=== PATIENT | female | born 1995 | race Caucasian/White ===

== ENCOUNTER 2017-11-13 23:34 | Emergency (ER) | payer SELFPAY | END 2017-11-14 01:08 | disposition left against medical advice (07) | LOC: ER 23:36 | DX: G89.18 Other acute postprocedural pain (principal); K08.89 Other specified disorders of teeth and supporting structures; Z98.890 Other specified postprocedural states ==

== ENCOUNTER → 2020-09-04 | Outpatient (CLI) | payer OTHER ==
--- NOTE | 2020-09-04 13:25 | Diagnostic Imaging Report ---
INDICATION: Evaluate placenta and anatomy as well as growth. TECHNIQUE: Multiple real-time grayscale images were obtained over the gravid uterus. COMPARISON: None. FINDINGS: There is a single live fetus in a cephalic presentation. heart rate was recorded at 142 BPM. Placenta is posterior. Amniotic fluid volume appears appropriate. Cervical length is 3.8 cm. kidneys, bladder, and stomach are visualized. Bladder does show some mild distention. The brain is unremarkable. There is a four-chamber heart. There is a three-vessel cord with normal insertion. spine is unremarkable. Previously noted placental cyst is not appreciated on today's study. Biometrical measurements are as follows: Biparietal 7.95 cm, age 32 weeks 0 days. Head circumference 29.02 cm, age 32 weeks 0 days. Abdominal circumference 23.59 cm, age 28 weeks 0 days. Femur length 5.83 cm, age 30 weeks 4 days. Sonographic estimate age: 30 weeks 5 days. Sonographic estimated date of delivery: 11/08/2020. Estimated Weight: 1392 gm (+/- 203 gm). LMP percentile: 14%. heart rate: 142 beats per minute. number: 1 of 1. IMPRESSION: Single live IUP at approximately 30 to 31 weeks gestational age with estimated date of confinement sonographically of 11/08/2020. Dictated by: Dictated on workstation # [id number]
== END ==
LOC: RAD 11:00
PROVIDERS: ATTEND Obstetrics & Gynecology
DX: O43.103 Malformation of placenta, unspecified, third trimester (principal); Z3A.30 30 weeks gestation of pregnancy
CPT/HCPCS: 76805

== ENCOUNTER 2020-11-10 07:20 | Inpatient (IN) | payer OTHER ==
[2020-11-10] VITALS (51 sets, daily range): BP systolic 94–140; BP diastolic 51–93
[2020-11-10] MEDS ORDERED: OXYTOCIN PRE-MIX DRIP 500 ML IV SCH ×2 (08:15→18:30)
[2020-11-10] MEDS ORDERED: MINERAL OIL CONCENTRATE 99.9% 15 ML UDC TOP PRN (08:15)
[2020-11-10] MEDS ORDERED: OXYTOCIN PRE-MIX DRIP 500 ML IV ONE (08:26)
[2020-11-10] MEDS ORDERED: D5 LR IV SOLUTION 1,000 ML IV ONE (08:27)
--- NOTE | 2020-11-10 08:53 | History & Physical-OB/GYN ---
PARULAnaliMOJGAN BAUTISTA 11/10/20 0853: OB - Chief Complaint & HPI Date/Time Date of Admission: Date of Admission: Nov 10, 2020 at 07:20 Date seen by a Provider: Nov 10, 2020 Chief Complaint/History OB-Reason for Admission/Chief: Induction of Labor Hx : 1 Hx Para: 0 Hx Last Menstrual Period: 02/05/2020 Expected Date of Delivery: Nov 11, 2020 Gestational Age in Weeks: 39 Gestational Age in Days: 6 Indication for induction: maternal distance Indication for : other (Social, Distance) Allergies and Home Medications Allergies Coded Allergies: ciprofloxacin (Verified Allergy, Mild, Rash, 11/10/20) Patient Home Medication List Home Medication List Reviewed: Yes OB - History Hx of Present Care: Yes Ultrasounds: Normal mid trimester US Obstetrical Complications: None Medical Complications: None Information Induced Hypertension: No Maternal Gestational Diabetes: No Hemorrhage: No Social History/Family History Alcohol Use: Denies Use Recreational Drug Use: No Smoking Cessation: Never smoker 2nd Hand Smoke Exposure: No Immunizations Rubella: immune RPR/VDRL: Negative GBS Status: Negative HBsAG: Negative OB - Admission Exam Physical Exam Heart: Rhythm Normal Lungs: Clear Abdomen: Gravid Extremities: Normal Reflexes: Normal Cervical Dilatation: 3cm Effacement: Other (80%) Station: -1 Correa Scoring Tool (Modified) Dilation (cm): 3-4cm (2) Effacement (%): 80-100% (3) Descent/Station: -1,0 (2) Cervix Consistency: Soft (2) Cervix Position: Posterior (0) Subtract 1 point for: Nulliparity (-1) OB - Assessment/Plan/Diagnosis Assessment Assessment: induction of labor Admission Dx 11/10/2020 Admission Status: Inpatient Order (span 2 midnights) Reason for Inpatient Admission: Induction of labor due to social/distance Plan Plan: Induction Induction Method: AROM Discharge Diagnosis Diagnosis: 39 and 6 weeks gestation Induction REINA NIEVES DO 11/10/20 1837: OB - Chief Complaint & HPI Date/Time Time Seen by a Provider: 08:45 Chief Complaint/History Admission Nurse Assessment Rev: Yes History of Labs A+/- HIV - HBsAg - Rub I VDRL NR GBS - Other Peds - Out of town Allergies and Home Medications Allergies Coded Allergies: ciprofloxacin (Verified Allergy, Mild, Rash, 11/10/20) Patient Home Medication List Home Medication List Reviewed: Yes OB - History Information Induced Hypertension: No Maternal Gestational Diabetes: No Hemorrhage: No Obstetrical History Hx : 1 Hx Para: 0 Patient Past Medical History NA Immunizations Tetanus Booster (TDap): Less than 5yrs OB - Assessment/Plan/Diagnosis Assessment Admission Dx Induction of labor 39 6/7 week gestation Admission Status: Inpatient Order (span 2 midnights) Reason for Inpatient Admission: Labor Supervisory-Addendum Brief Verification & Attestation Participated in pt care: history Personally performed: supervision of care Care discussed with: Medical Student Procedures: n/a Results interpretation: Verified all documentation I participated in the history and physical of this patient and confirm medical student assessment MOJGAN WRIGHT Nov 10, 2020 08:53 REINA NIEVES DO Nov 10, 2020 18:37
[2020-11-10] MEDS: D5 LR IV SOLUTION 1,000 ML IV SCH ×2 (08:58→16:19)
[2020-11-10 09:26] LABS: BASOPHILS % (AUTO) 0 % (0-10); EOSINOPHILS # (AUTO) 0.1 10^3/uL (0.0-0.3); EOSINOPHILS % (AUTO) 1 % (0-10); HEMATOCRIT 36 % (35-52); HEMOGLOBIN 12.3 g/dL (11.5-16.0); LYMPHOCYTES # (AUTO) 1.5 10^3/uL (1.0-4.0); LYMPHOCYTES % (AUTO) 14 % (12-44); MEAN CORPUSCULAR HEMOGLOBIN 30 pg (25-34); MEAN CORPUSCULAR HGB CONC 34 g/dL (32-36); MEAN CORPUSCULAR VOLUME 87 fL (80-99); MEAN PLATELET VOLUME 9.6 fL (9.0-12.2); MONOCYTES # (AUTO) 0.6 10^3/uL (0.0-1.0); MONOCYTES % (AUTO) 6 % (0-12); NEUTROPHILS # (AUTO) 8.4 10^3/uL (1.8-7.8); NEUTROPHILS % (AUTO) 79 % (42-75); PLATELET COUNT 229 10^3/uL (130-400); WHITE BLOOD COUNT 10.8 10^3/uL (4.3-11.0)
[2020-11-10 09:31] LABS: BILIRUBIN,URINE NEGATIVE (NEGATIVE); CLARITY,URINE CLEAR; COLOR,URINE YELLOW; GLUCOSE, URINE (UA) NEGATIVE (NEGATIVE); KETONES,URINE NEGATIVE (NEGATIVE); LEUKOCYTE ESTERASE ,URINE 1+ (NEGATIVE); NITRITE,URINE NEGATIVE (NEGATIVE); PH,URINE 7.5 (5-9); PROTEIN,URINE NEGATIVE (NEGATIVE)
[2020-11-10 09:53] LABS: BACTERIA,URINE FEW /HPF
[2020-11-10] MEDS ORDERED: fentaNYL 2 mcg/ml BUPIVA 0.125 100 ML ONE (13:05)
[2020-11-10] MEDS ORDERED: fentaNYL INJ 100 MCG/2 ML AMP ONE (13:23)
[2020-11-10] MEDS ORDERED: BUPIVACAINE 0.25% 30 ML (SENSORCAINE) VIAL ONE (13:23)
[2020-11-10] MEDS ORDERED: NALOXONE 0.4 MG/ML 1 ML (NARCAN) VIAL IV PRN (13:30)
[2020-11-10] MEDS ORDERED: diphenhydrAMINE 50 MG/ML INJ (BENADRYL) IV PRN (13:30)
[2020-11-10] MEDS ORDERED: fentaNYL 2 mcg/ml BUPIVA 0.125 100 ML IV SCH (13:30)
[2020-11-10] MEDS ORDERED: ONDANSETRON 4 MG/2 ML (SDV) Z0FRAN IV PRN (13:30)
[2020-11-10] MEDS ORDERED: CATHETER FLUSH 10 ML SYR IV PRN (13:30)
[2020-11-10] MEDS ORDERED: LACTATED RINGERS 1,000 ML IV ONE (13:30)
[2020-11-10] MEDS ORDERED: CATHETER FLUSH 10 ML SYR IV SCH ×2 (14:00→22:00)
[2020-11-10] MEDS ORDERED: LIDOCAINE/EPI 2% 1:200,00 (XYLOCAINE) 20 ML VIAL ONE (18:16)
--- NOTE | 2020-11-10 18:28 | OB Labor & Delivery Record ---
Vag Delivery Note Vag Delivery Note Date of Delivery: 11/10/20 Preoperative Diagnosis: Nisha Spence is a 24 /Para 1 / 0,Gestational Age 39 6/7 weeks for social induction Postoperative Diagnosis: Same, meconium, deep variable decelerations, maternal fatigue Surgeon: REINA NIEVES [employer] Teacher: Amena Trnih MS III Anesthesia: epidural Delivery Type: vacuum assisted vaginal delivery Findings: Viable female infant, apgars 7/8 weight 7#7ounces Lacerations: left vaginal wall and small perineal Intact placenta with 3 vessel cord. Nuchal cord x 1 reduced, no shoulder dystocia. Estimated Blood Loss: 300 ml Complications: None Condition: Stable Description of Procedure: The patient is a 24 year old female who presented for induction of labor. She was admitted and informed consent was obtained. Her labor course was remarkable for AROM with thin meconium and pitocin augmentation. She progressed to complete dilatation and began to push. She was then set up for delivery. She had deep decelerations and after pushing for > 1 hour, she requested assisted delivery. With 2+ station, the Kiwi vacuum was placed on the head. With 3 contractions and 3 pushes each, The infant's head was delivered atraumatically in the MIKEY position. The shoulders and remainder of the infant's body were then delivered without difficulty. Upon delivery, the head was held below the level of the perineum, cord was reduced, and the mouth and nares were delee suctioned. The cord was doubly clamped and cut and the infant was handed off to the pediatric staff. An intact placenta with 3-vessel cord delivered via Anna and there was found to be minimal bleeding.~ Vigorous fundal massage was performed and the fundus was found to be firm. IV oxytocin was given. Examination of the vagina and perineum revealed small perineal and left vaginal wall laceration repaired in the usual fashion with 3-0 vicryl suture. Following the repair, sponge, instrument and needle counts were correct. Mom and baby were both in stable condition in the labor suite. Vitals - Labs Vital Signs - I&O Vital Signs Date Time Temp Pulse Resp B/P (MAP) Pulse Ox O2 Delivery O2 Flow Rate FiO2 11/10/20 17:30 87 18 117/61 (79) 100 Room Air 11/10/20 17:15 88 18 110/62 (78) 100 Room Air 11/10/20 17:00 115 18 106/78 (87) 100 Room Air 11/10/20 16:45 118 18 106/78 (87) 99 Room Air 11/10/20 16:30 68 18 125/58 (80) 99 Room Air 11/10/20 16:15 94 18 134/68 (90) 99 Room Air 11/10/20 16:00 76 18 117/61 (79) 97 Room Air 11/10/20 15:45 85 18 120/63 (82) 100 Room Air 11/10/20 15:30 80 18 124/58 (80) 100 Room Air 11/10/20 15:15 87 18 100 Room Air 11/10/20 15:00 87 18 98 Room Air 11/10/20 14:45 60 18 130/68 (88) 100 Room Air 11/10/20 14:30 68 18 119/68 (85) 100 Room Air 11/10/20 14:15 68 18 119/68 (85) 100 Room Air 11/10/20 14:00 53 18 119/61 (80) 100 Room Air 11/10/20 13:55 54 18 112/55 (74) 99 Room Air 11/10/20 13:50 63 18 107/51 (69) 100 Room Air 11/10/20 13:45 53 18 119/61 (80) Room Air 11/10/20 13:40 72 18 117/58 (77) 98 Room Air 11/10/20 13:36 61 18 117/51 (73) 93 Room Air 11/10/20 13:33 53 18 119/61 (80) Room Air 11/10/20 13:30 93 18 117/74 (88) 90 Room Air 11/10/20 13:20 83 18 119/93 (102) Room Air 11/10/20 13:10 71 18 109/54 (72) 11/10/20 13:05 18 Room Air 11/10/20 12:50 18 Room Air 11/10/20 12:35 18 114/77 (89) Room Air 11/10/20 12:20 85 18 Room Air 11/10/20 12:18 36.4 11/10/20 12:05 18 Room Air 11/10/20 11:50 18 Room Air 11/10/20 11:35 81 18 114/74 (87) Room Air 11/10/20 11:20 87 18 129/75 (93) Room Air 11/10/20 11:05 87 18 129/75 (93) Room Air 11/10/20 10:55 71 18 128/70 (89) Room Air 11/10/20 10:40 86 18 122/71 (88) Room Air 11/10/20 10:25 96 18 121/77 (92) Room Air 11/10/20 10:00 97 18 116/69 (85) Room Air 11/10/20 09:30 86 18 125/76 (92) Room Air 11/10/20 09:00 86 18 127/78 (94) Room Air 11/10/20 08:00 36.4 90 18 96 Room Air Labs Laboratory Tests 11/10/20 08:30: Urine Color YELLOW, Urine Clarity CLEAR, Urine pH 7.5, Urine Specific Bailey 1.015L, Urine Protein NEGATIVE, Urine Glucose (UA) NEGATIVE, Urine Ketones NEGATIVE, Urine Nitrite NEGATIVE, Urine Bilirubin NEGATIVE, Urine Urobilinogen 0.2, Urine Leukocyte Esterase 1+H, Urine RBC (Auto) NEGATIVE, Urine RBC NONE, Urine WBC 5-10H, Urine Squamous Epithelial Cells 5-10, Urine Crystals NONE, Urine Bacteria FEWH, Urine Casts NONE, Urine Mucus NEGATIVE, Urine Culture Indicated YES 11/10/20 08:55: White Blood Count 10.8, Red Blood Count 4.10, Hemoglobin 12.3, Hematocrit 36, Mean Corpuscular Volume 87, Mean Corpuscular Hemoglobin 30, Mean Corpuscular Hemoglobin Concent 34, Red Cell Distribution Width 11.9, Platelet Count 229, Mean Platelet Volume 9.6, Immature Granulocyte % (Auto) 1, Neutrophils (%) (Auto) 79H, Lymphocytes (%) (Auto) 14, Monocytes (%) (Auto) 6, Eosinophils (%) (Auto) 1, Basophils (%) (Auto) 0, Neutrophils # (Auto) 8.4H, Lymphocytes # (Auto) 1.5, Monocytes # (Auto) 0.6, Eosinophils # (Auto) 0.1, Basophils # (Auto) 0.0, Immature Granulocyte # (Auto) 0.1 REINA NIEVES DO Nov 10, 2020 18:28
[2020-11-10] MEDS ORDERED: WITCH HAZEL(TUCKS) 40 EA JAR TOP PRN (18:30)
[2020-11-10] MEDS ORDERED: TETANUS,DIPTH,PERTUSS P/F (BOOSTRIX) 0.5 ML VIAL IM ONE (18:30)
[2020-11-10] MEDS ORDERED: BENZOCAINE/MENTHOL (DERMOPLAST) 56 ML CAN TP PRN (18:30)
[2020-11-10] MEDS ORDERED: MEASLES,MUMPS,RUBELLA 1 EA INJ SQ ONE (18:30)
[2020-11-10] MEDS: DOCUSATE SODIUM 100 MG (COLACE) CAP PO SCH (20:34)
[2020-11-10] MEDS: ACETAMINOPHEN 500 MG TAB (TYLENOL) PO SCH (20:35)
[2020-11-10] MEDS: IBUPROFEN 600 MG (MOTRIN) TAB PO SCH (22:11)
[2020-11-11 00:30] VITALS: BP 105/55
[2020-11-11 04:34] VITALS: BP 111/50
[2020-11-11] MEDS: IBUPROFEN 600 MG (MOTRIN) TAB PO SCH ×3 (04:34→18:24)
[2020-11-11] MEDS: ACETAMINOPHEN 500 MG TAB (TYLENOL) PO SCH ×2 (04:34→14:04)
[2020-11-11 06:59] LABS: BASOPHILS # (AUTO) 0.1 10^3/uL (0.0-0.1); BASOPHILS % (AUTO) 0 % (0-10); EOSINOPHILS # (AUTO) 0.1 10^3/uL (0.0-0.3); EOSINOPHILS % (AUTO) 1 % (0-10); HEMATOCRIT 30 % (35-52); HEMOGLOBIN 9.9 g/dL (11.5-16.0); LYMPHOCYTES # (AUTO) 2.1 10^3/uL (1.0-4.0); LYMPHOCYTES % (AUTO) 12 % (12-44); MEAN CORPUSCULAR HEMOGLOBIN 30 pg (25-34); MEAN CORPUSCULAR HGB CONC 33 g/dL (32-36); MEAN CORPUSCULAR VOLUME 93 fL (80-99); MEAN PLATELET VOLUME 9.7 fL (9.0-12.2); MONOCYTES # (AUTO) 1.2 10^3/uL (0.0-1.0); MONOCYTES % (AUTO) 7 % (0-12); NEUTROPHILS # (AUTO) 13.9 10^3/uL (1.8-7.8); NEUTROPHILS % (AUTO) 79 % (42-75); PLATELET COUNT 205 10^3/uL (130-400); WHITE BLOOD COUNT 17.5 10^3/uL (4.3-11.0)
--- NOTE | 2020-11-11 07:51 | Anesthesia-Regional Post-Op ---
Regional Patient Condition Mental Status: Alert, Oriented x3 Circulation: Same as Pre-Op Headache: Absent Sensation: Full Recovery Motor Block: Absent Post Op Complications Complications None Follow Up Care/Instructions Patient Instructions None needed. Anesthesia/Patient Condition Patient is doing well, no complaints, stable vital signs, no apparent adverse anesthesia problems. No complications reported per nursing. D/C home per [facility] Criteria: No ESME MIKE CRNA Nov 11, 2020 07:51
--- NOTE | 2020-11-11 08:45 | Postpartum Progress Note ---
Note Note 11/10/20 11/10/20 11/10/20 11/10/20 20:46 21:01 21:16 21:31 Temp 37.1 Pulse 97 111 106 86 B/P (MAP) 112/56 (74) 111/54 (73) 117/58 (77) 108/52 (70) 11/10/20 11/10/20 11/10/20 11/11/20 21:46 22:01 22:10 00:30 Temp 36.9 36.2 Pulse 88 102 84 83 Resp 18 B/P (MAP) 111/57 (75) 119/58 (78) 115/56 (75) 105/55 (72) Pulse Ox 98 11/11/20 04:34 Temp 36.2 Pulse 82 Resp 18 B/P (MAP) 111/50 (70) Pulse Ox 99 11/11/20 00:00 Intake Total 3000 ml Balance 3000 ml Laboratory Tests Test 11/10/20 08:55 11/11/20 06:35 Range/Units White Blood Count 10.8 17.5 H 4.3-11.0 10^3/uL Red Blood Count 4.10 3.28 L 3.80-5.11 10^6/uL Hemoglobin 12.3 9.9 L 11.5-16.0 g/dL Hematocrit 36 30 L 35-52 % Mean Corpuscular Volume 87 93 80-99 fL Mean Corpuscular Hemoglobin 30 30 25-34 pg Mean Corpuscular Hemoglobin Concent 34 33 32-36 g/dL Red Cell Distribution Width 11.9 12.2 10.0-14.5 % Platelet Count 229 205 130-400 10^3/uL Mean Platelet Volume 9.6 9.7 9.0-12.2 fL Immature Granulocyte % (Auto) 1 1 % Neutrophils (%) (Auto) 79 H 79 H 42-75 % Lymphocytes (%) (Auto) 14 12 12-44 % Monocytes (%) (Auto) 6 7 0-12 % Eosinophils (%) (Auto) 1 1 0-10 % Basophils (%) (Auto) 0 0 0-10 % Neutrophils # (Auto) 8.4 H 13.9 H 1.8-7.8 10^3/uL Lymphocytes # (Auto) 1.5 2.1 1.0-4.0 10^3/uL Monocytes # (Auto) 0.6 1.2 H 0.0-1.0 10^3/uL Eosinophils # (Auto) 0.1 0.1 0.0-0.3 10^3/uL Basophils # (Auto) 0.0 0.1 0.0-0.1 10^3/uL Immature Granulocyte # (Auto) 0.1 0.1 0.0-0.1 10^3/uL Day # 1 Subjective: Patient is without complaints. Ambulating, voiding. Tolerating a regular diet without nausea or vomiting. Normal lochia. Pain is well controlled with oral pain medications. breast feeding. Physical Exam: General - Alert and oriented, no apparent distress Abdomen - Soft, appropriately tender to palpation, non-distended, fundus firm at umbilicus Extremities - no edema, negative Sheyla's bilaterally Assessment: 1 post- day # 1, status post spontaneous vaginal delivery. Recovering well, hemodynamically stable Plan: Routine care. Encourage breast feeding. Encourage ambulation. Ferrous sulfate supplementation. Plan for discharge tomorrow Vitals - Labs Vital Signs - I&O Vital Signs Date Time Temp Pulse Resp B/P (MAP) Pulse Ox O2 Delivery O2 Flow Rate FiO2 11/11/20 04:34 36.2 82 18 111/50 (70) 99 11/11/20 00:30 36.2 83 18 105/55 (72) 98 11/10/20 22:10 36.9 84 115/56 (75) 11/10/20 22:01 102 119/58 (78) 11/10/20 21:46 88 111/57 (75) 11/10/20 21:31 86 108/52 (70) 11/10/20 21:16 106 117/58 (77) 11/10/20 21:01 37.1 111 111/54 (73) 11/10/20 20:46 97 112/56 (74) 11/10/20 20:31 112 117/57 (77) 11/10/20 20:16 37.1 107 114/60 (78) 11/10/20 20:01 122 105/66 (79) 11/10/20 19:46 129 94/54 (67) 11/10/20 19:36 37.4 111 121/56 (77) 11/10/20 19:23 Room Air 11/10/20 19:15 Room Air 11/10/20 19:00 131 18 122/60 (80) Room Air 11/10/20 18:45 111 18 136/71 (92) Room Air 11/10/20 18:30 110 18 140/67 (91) Room Air 11/10/20 18:15 99 18 129/65 (86) Room Air 11/10/20 18:00 82 18 116/65 (82) 99 Room Air 11/10/20 17:45 81 18 116/65 (82) 99 Room Air 11/10/20 17:30 87 18 117/61 (79) 100 Room Air 11/10/20 17:15 88 18 110/62 (78) 100 Room Air 11/10/20 17:00 115 18 106/78 (87) 100 Room Air 11/10/20 16:45 118 18 106/78 (87) 99 Room Air 11/10/20 16:30 68 18 125/58 (80) 99 Room Air 11/10/20 16:15 94 18 134/68 (90) 99 Room Air 11/10/20 16:00 76 18 117/61 (79) 97 Room Air 11/10/20 15:45 85 18 120/63 (82) 100 Room Air 11/10/20 15:30 80 18 124/58 (80) 100 Room Air 11/10/20 15:15 87 18 100 Room Air 11/10/20 15:00 87 18 98 Room Air 11/10/20 14:45 60 18 130/68 (88) 100 Room Air 11/10/20 14:30 68 18 119/68 (85) 100 Room Air 11/10/20 14:15 68 18 119/68 (85) 100 Room Air 11/10/20 14:00 53 18 119/61 (80) 100 Room Air 11/10/20 13:55 54 18 112/55 (74) 99 Room Air 11/10/20 13:50 63 18 107/51 (69) 100 Room Air 11/10/20 13:45 53 18 119/61 (80) Room Air 11/10/20 13:40 72 18 117/58 (77) 98 Room Air 11/10/20 13:36 61 18 117/51 (73) 93 Room Air 11/10/20 13:33 53 18 119/61 (80) Room Air 11/10/20 13:30 93 18 117/74 (88) 90 Room Air 11/10/20 13:20 83 18 119/93 (102) Room Air 11/10/20 13:10 71 18 109/54 (72) 11/10/20 13:05 18 Room Air 11/10/20 12:50 18 Room Air 11/10/20 12:35 18 114/77 (89) Room Air 11/10/20 12:20 85 18 Room Air 11/10/20 12:18 36.4 11/10/20 12:05 18 Room Air 11/10/20 11:50 18 Room Air 11/10/20 11:35 81 18 114/74 (87) Room Air 11/10/20 11:20 87 18 129/75 (93) Room Air 11/10/20 11:05 87 18 129/75 (93) Room Air 11/10/20 10:55 71 18 128/70 (89) Room Air 11/10/20 10:40 86 18 122/71 (88) Room Air 11/10/20 10:25 96 18 121/77 (92) Room Air 11/10/20 10:00 97 18 116/69 (85) Room Air 11/10/20 09:30 86 18 125/76 (92) Room Air 11/10/20 09:00 86 18 127/78 (94) Room Air I & O 11/11/20 07:00 Intake Total 3000 ml Balance 3000 ml Labs Laboratory Tests 11/10/20 08:55: White Blood Count 10.8, Red Blood Count 4.10, Hemoglobin 12.3, Hematocrit 36, Mean Corpuscular Volume 87, Mean Corpuscular Hemoglobin 30, Mean Corpuscular Hemoglobin Concent 34, Red Cell Distribution Width 11.9, Platelet Count 229, Mean Platelet Volume 9.6, Immature Granulocyte % (Auto) 1, Neutrophils (%) (Auto) 79H, Lymphocytes (%) (Auto) 14, Monocytes (%) (Auto) 6, Eosinophils (%) (Auto) 1, Basophils (%) (Auto) 0, Neutrophils # (Auto) 8.4H, Lymphocytes # (Auto) 1.5, Monocytes # (Auto) 0.6, Eosinophils # (Auto) 0.1, Basophils # (Auto) 0.0, Immature Granulocyte # (Auto) 0.1 11/11/20 06:35: White Blood Count 17.5H, Red Blood Count 3.28L, Hemoglobin 9.9L, Hematocrit 30L, Mean Corpuscular Volume 93, Mean Corpuscular Hemoglobin 30, Mean Corpuscular Hemoglobin Concent 33, Red Cell Distribution Width 12.2, Platelet Count 205, Mean Platelet Volume 9.7, Immature Granulocyte % (Auto) 1, Neutrophils (%) (Auto) 79H, Lymphocytes (%) (Auto) 12, Monocytes (%) (Auto) 7, Eosinophils (%) (Auto) 1, Basophils (%) (Auto) 0, Neutrophils # (Auto) 13.9H, Lymphocytes # (Auto) 2.1, Monocytes # (Auto) 1.2H, Eosinophils # (Auto) 0.1, Basophils # (Auto) 0.1, Immature Granulocyte # (Auto) 0.1 REINA NIEVES DO Nov 11, 2020 08:44
[2020-11-11 09:38] VITALS: BP 114/56
[2020-11-11] MEDS: FERROUS SULF 325 MG (IRON) TAB PO SCH (09:39)
[2020-11-11] MEDS: PRENATAL VITAMIN 1 EA TAB PO SCH (09:39)
[2020-11-11] MEDS: DOCUSATE SODIUM 100 MG (COLACE) CAP PO SCH ×2 (09:39→20:55)
[2020-11-11 14:04] VITALS: BP 115/57
[2020-11-11 18:24] VITALS: BP 117/58
[2020-11-12] VITALS: BP 118/60
[2020-11-12 05:28] VITALS: BP 113/56
[2020-11-12] MEDS: IBUPROFEN 600 MG (MOTRIN) TAB PO SCH ×2 (05:28)
[2020-11-12] MEDS: DOCUSATE SODIUM 100 MG (COLACE) CAP PO SCH (08:56)
[2020-11-12] MEDS: FERROUS SULF 325 MG (IRON) TAB PO SCH (08:56)
[2020-11-12] MEDS: PRENATAL VITAMIN 1 EA TAB PO SCH (08:56)
[2020-11-12] MEDS: ACETAMINOPHEN 500 MG TAB (TYLENOL) PO SCH ×2 (08:57)
--- NOTE | 2020-11-12 09:56 | Postpartum Progress Note ---
Note Note Day # 2 Subjective: Patient is without complaints. Ambulating, voiding. Tolerating a regular diet without nausea or vomiting. Normal lochia. Pain is well controlled with oral pain medications. Objective: Physical Exam: General - Alert and oriented, no apparent distress Abdomen - Soft, appropriately tender to palpation, non-distended, fundus firm at umbilicus Extremities - no edema, negative Sheyla's bilaterally Assessment: Post- day # 2, status post vaginal delivery. Recovering well, hemodynamically stable Acute blood loss anemia Plan: Routine care. Encourage breast feeding. Encourage ambulation. Ferrous sulfate supplementation. Plan for discharge today Vitals - Labs Vital Signs - I&O Vital Signs Date Time Temp Pulse Resp B/P (MAP) Pulse Ox O2 Delivery O2 Flow Rate FiO2 11/12/20 05:28 36.6 70 16 113/56 (75) 98 Room Air 11/12/20 00:00 36.9 70 18 118/60 (79) 99 Room Air 11/11/20 18:24 37.0 81 16 117/58 (77) 99 Room Air 11/11/20 14:04 36.7 80 16 115/57 (76) 99 Labs Microbiology 11/10/20 Urine Culture - Final, Complete Gram Pos Mixed Bacterial Courtney GARETT WHITLEY APRN Nov 12, 2020 09:56
[2020-11-12] MEDS ORDERED: IBUP-844 PO (10:02)
[2020-11-12] MEDS ORDERED: DCS100C PO (10:02)
[2020-11-12] MEDS ORDERED: OXC5T PO (10:02)
--- NOTE | 2020-11-12 10:04 | Discharge Inst-Women's Service ---
Discharge Inst-Women's Serv Depart Medication/Instructions New, Converted or Re-Newed RX: Transmitted to Pharmacy Consults/Follow Up Additional Follow Up: Yes Orders/Referrals 6wk PP appt Activity Activity: Activity as Tolerated Driving Instructions: No Driving for 1 Week NO SMOKING: NO SMOKING Nothing Inside Vagina: No Douching, No [place], No Tampons Diet Discharge Diet: No Restrictions Symptoms to Report to : Pain Increased, Fever Over 101 Degrees F, Vaginal Bleeding Increase For Any Problems or Questions: Contact Your Physician GARETT WHITLEY APRN Nov 12, 2020 10:04
== END 2020-11-12 11:20 | disposition home or self-care (01) | DRG 806 ==
LOC: LDRP 07:20 → EDBD 07:20 → LDRP 07:45 → WS 11-11 09:27
PROVIDERS: ADMIT Obstetrics & Gynecology; ATTEND Obstetrics & Gynecology
PROC: 10D07Z6 Extraction of Products of Conception, Vacuum, Via Natural or Artificial Opening (ICD-10-PCS; principal; 2020-11-10)
PROC: 0KQM0ZZ Repair Perineum Muscle, Open Approach (ICD-10-PCS; 2020-11-10)
PROC: 0UQGXZZ Repair Vagina, External Approach (ICD-10-PCS; 2020-11-10)
PROC: 10907ZC Drainage of Amniotic Fluid, Therapeutic from Products of Conception, Via Natural or Artificial Opening (ICD-10-PCS; 2020-11-10)
DX: O77.0 Labor and delivery complicated by meconium in amniotic fluid (principal); D62 Acute posthemorrhagic anemia; Z37.0 Single live birth; Z3A.39 39 weeks gestation of pregnancy; O76 Abnormality in fetal heart rate and rhythm complicating labor and delivery; O75.81 Maternal exhaustion complicating labor and delivery; O70.1 Second degree perineal laceration during delivery; O90.81 Anemia of the puerperium; Z88.1 Allergy status to other antibiotic agents
CPT/HCPCS: 36415; 81000; 85025; 86850; 86900; 86901; 87088